=== PATIENT | male | born 1975 | race Hispanic/Latino ===

== ENCOUNTER 2020-05-10 10:12 | Emergency (ER) | payer OTHER, SELFPAY ==
[2020-05-10 10:13] VITALS: BP 121/83; PULSE 60; RESP 16; TEMP 36.3; O2SAT 98; BMI 25.7
--- NOTE | 2020-05-10 10:15 | ED.RN ---
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
--- NOTE | 2020-05-10 10:28 | RAD_ITS ---
STUDY: X-RAY - UNILATERAL RIBS ( LEFT ) WITH CHEST REASON FOR EXAM: Male, 45 years old. Left anterior chest pain after being hit in chest with metal. TECHNIQUE - RIBS: 2 view(s) of the ribs. TECHNIQUE - CHEST: Single frontal view of the chest. COMPARISON: None. FINDINGS - RIBS: Normal visualized ribs without a demonstrated fracture. FINDINGS - CHEST: The lungs are clear and expanded. There is no demonstrated pleural abnormality. Normal size heart. Normal mediastinum and ange. Normal visualized pulmonary arteries. Normal visualized aortic arch and descending thoracic aorta. Normal visualized thoracic spine. Normal visualized ribs, clavicles, and shoulders. There is no demonstrated abnormality of the visualized soft tissue structures of the upper abdomen. RAD/Ribs Uni Min 3V w/PA Chest IMPRESSION: RIBS: No abnormality of the left ribs. CHEST: Normal x-ray examination of the chest. Electronically Signed: Jordan Max MD at 12:23 EDT , Service support ,
--- NOTE | 2020-05-10 10:41 | ED.VISSUMM ---
- ER Visit Summary Date of Service: 05/10/20 Chief Complaint: Chest wall pain History of Present Illness: The patient is a 45 M presenting with chest wall pain. Patient was at work. He states a metal piece of equipment swung back and hit him in the chest 8 days ago. He has had persistent tenderness in the left upper chest. He denies shortness of breath. Denies head injury. Denies other complaints. Physical Examination: Vitals are stable. Patient is afebrile. Alert no acute distress. HEENT exam is unremarkable. Neck is nontender Lungs are clear and equal bilaterally. Ecchymosis and tenderness left upper chest wall, no crepitus Heart is regular rate and rhythm. Abdomen is soft nontender nondistended. Extremities are unremarkable. Skin is warm and dry. No focal neurologic deficit. Remainder of exam is unremarkable. Emergency Department Course and Treatment: Left rib series shows RIBS: No abnormality of the left ribs. CHEST: Normal x-ray examination of the chest. Patient is given an incentive spirometer. He is given a prescription for Naprosyn. Advised to follow-up with [facility]. Advised return to ED if worsening complaints. Disposition: Discharged home Impression: Chest wall contusion This note was generated with [employer] dictation software. It may contain incorrect words, spelling, and punctuation that were not noted in review of the chart prior to signing ED Disposition - Plan for ED Patient: Referrals: [facility] Doctor,Out of [NON-STAFF] -
--- NOTE | 2020-05-10 12:30 | ED.DEP ---
ED Disposition - Plan for ED Patient: Instructions: ED CHEST CONTUSION Prescriptions: Naproxen [Naprosyn] 500 mg PO BID PRN #20 tab Prescription Printed Referrals: [facility] [GROUP OF PHYSICIANS] -
[2020-05-10 13:09] VITALS: BP 118/79; PULSE 62; RESP 15; O2SAT 99
== END 2020-05-10 13:09 | disposition home or self-care (01) ==
PROVIDERS: Emergency Provider Emergency Medicine
DX: S20.212A Contusion of left front wall of thorax, initial encounter (principal); W22.8XXA Striking against or struck by other objects, initial encounter; Y93.9 Activity, unspecified; Y92.9 Unspecified place or not applicable; Y99.0 Civilian activity done for income or pay
CPT/HCPCS: 71101; 99283